=== PATIENT | male | born 2000 | race Asian ===

== ENCOUNTER 2019-03-18 22:44 | Emergency (ER) | payer SELFPAY ==
[~2019-03-18] VITALS: Ht 175.3 cm; Wt 81.8 kg
[2019-03-18 22:45] VITALS: TEMP 97.9
[2019-03-18 22:55] LABS: HEMATOCRIT 45.9 % (36.0-47.0); HEMOGLOBIN 15.9 g/dl (12.5-16.1); MEAN CELL VOLUME 87 fl (80.0-95.0); MEAN CORPUSCULAR HEMOGLOBIN 30 pg (26.0-32.0); MEAN CORPUSCULAR HGB CONC 35 g/dl (33.0-37.0); MEAN PLATELET VOLUME 9.5 fl (7.4-10.4); PLATELET COUNT 307 K/mm3 (130-400); REDCELL DISTRIBUTION WIDTH-CV 11.5 % (11.5-14.5)
[2019-03-18 23:05] LABS: ALBUMIN 5.1 gm/dL (3.5-5.0); BILIRUBIN,TOTAL 0.8 mg/dL (0.0-1.0); CALCIUM 9.6 mg/dL (8.4-10.2); CREATININE, serum 1.15 (0.66-1.25); POTASSIUM 3.4 mmol/L (3.4-5.0); TOTAL PROTEIN 8.4 gm/dL (6.4-8.2)
[2019-03-18 23:21] LABS: PROLACTIN 111.5 ng/mL (3.7-17.9)
[2019-03-18] MEDS ORDERED: KEPPRA 500MG500 MG PO (23:32)
[2019-03-18 23:39] LABS: EOSINOPHIL 2 % (0-4); LYMPHOCYTE 51 % (20.0-51.0); NEUTROPHILS 43 % (42.0-75.2); PLATELET ESTIMATE NORMAL (NORMAL)
[2019-03-19 00:35] LABS: COLLECTION METHOD CLEAN CATCH
[2019-03-19 00:40] LABS: MUCOUS Present /lpf; PH 5 (5-8); SQUAMOUS EPITHELIAL 0-2 /hpf; URINE APPEARANCE Clear; URINE BACTERIA None Seen /hpf; URINE BILIRUBIN Negative (NEGATIVE); URINE BLOOD Negative (NEGATIVE); URINE COLOR Yellow; URINE GLUCOSE Negative (NEGATIVE); URINE KETONE Negative (NEGATIVE); URINE LEUKOCYTE ESTERASE Negative (NEGATIVE); URINE NITRATE Negative (NEGATIVE); URINE PROTEIN(semi-quant) 1+ (NEGATIVE); URINE RBC 0-2 /hpf; URINE UROBILINOGEN Negative (NEGATIVE)
[2019-03-19 02:54] VITALS: BP 129/95; PULSE 98
== END 2019-03-19 02:54 | disposition home or self-care (01) ==
LOC: COL.ER 22:44
PROVIDERS: Emergency Medicine
DX: G40.909 Epilepsy, unspecified, not intractable, without status epilepticus (principal)
CPT/HCPCS: J1953; J7030

== ENCOUNTER 2020-08-09 02:34 | Inpatient (IN) | payer BC ==
[2020-08-09] VITALS (78 sets, daily range): BP systolic 114–145; BP diastolic 63–90; PULSE 87–125; TEMP 96.7–98.4; O2SAT 97–100
[~2020-08-09] VITALS: Ht 180.3 cm; Wt 94.5 kg
[~2020-08-09 02:34] MED LIST: KEPPRA 500MG500 MG PO
[2020-08-09 02:57] LABS: HEMATOCRIT 43.7 % (36.0-47.0); HEMOGLOBIN 14.8 g/dl (12.5-16.1); MEAN CELL VOLUME 87 fl (80.0-95.0); MEAN CORPUSCULAR HEMOGLOBIN 30 pg (26.0-32.0); MEAN CORPUSCULAR HGB CONC 34 g/dl (33.0-37.0); MEAN PLATELET VOLUME 9.7 fl (7.4-10.4); PLATELET COUNT 346 K/mm3 (130-400); REDCELL DISTRIBUTION WIDTH-CV 11.7 % (11.5-14.5)
[2020-08-09 03:05] LABS: ALANINE AMINOTRANSFERASE 41 U/L (4-49); ALBUMIN 4.9 gm/dL (3.5-5.0); ALKALINE PHOSPHATASE 70 U/L (50-136); ANION GAP 16 mmol/L (7-16); AST,SGOT 32 U/L (15-37); BLOOD UREA NITROGEN 16 mg/dL (9-20); CALCIUM 9.1 mg/dL (8.4-10.2); CARBON DIOXIDE 24 mmol/L (22-30); CHLORIDE 103 mmol/L (98-107); CREATININE, serum 1.05 (0.66-1.25); GLUCOSE 134 mg/dL (74-106); LIPASE 57 U/L (23-300); SODIUM 143 mmol/L (137-145); TOTAL PROTEIN 8.7 gm/dL (6.4-8.2)
[2020-08-09 03:08] LABS: MAGNESIUM 2.3 mg/dL (1.6-2.3)
[2020-08-09 03:16] LABS: BAND 8 % (0-10); EOSINOPHIL 1 % (0-4); LYMPHOCYTE 50 % (20.0-51.0); NEUTROPHILS 31 % (42.0-75.2); PLATELET ESTIMATE NORMAL (NORMAL)
[2020-08-09 03:20] LABS: POTASSIUM 2.6 mmol/L (3.4-5.0); TROPONIN-I < 0.012 ng/mL (0.000-0.035)
[2020-08-09 03:35] LABS: COLLECTION METHOD CLEAN CATCH
[2020-08-09 03:41] LABS: PH 6 (5-8); SQUAMOUS EPITHELIAL None Seen /hpf; URINE APPEARANCE Clear; URINE BACTERIA Rare /hpf; URINE BILIRUBIN Negative (NEGATIVE); URINE BLOOD Negative (NEGATIVE); URINE COLOR Straw; URINE GLUCOSE Negative (NEGATIVE); URINE KETONE Negative (NEGATIVE); URINE LEUKOCYTE ESTERASE Negative (NEGATIVE); URINE NITRATE Negative (NEGATIVE); URINE PROTEIN(semi-quant) Negative (NEGATIVE); URINE RBC 0-2 /hpf; URINE UROBILINOGEN Negative (NEGATIVE)
[2020-08-09 04:09] LABS: TRICYCLIC ANTIDEPRESS URINE NEGATIVE
[2020-08-09 05:14] LABS: INR 1.1 (0.8-3.0); PROTHROMBIN TIME 11.9 SECONDS (9.7-12.8)
[2020-08-09 05:23] LABS: ACETAMINOPHEN < 10 ug/mL (10-30); SALICYLATE < 1.0 mg/dL
[2020-08-09 05:39] LABS: PROLACTIN 88.9 ng/mL (3.7-17.9)
--- NOTE | 2020-08-09 08:27 | NUR ---
RECEIVED REPORT FROM JERROD LOCKWOOD.
[2020-08-09] MEDS ORDERED: KEPPRA 500MG500 MG PO (09:25)
--- NOTE | 2020-08-09 10:39 | NUR ---
DR. BRITO AT BEDSIDE. ORDERS RECEIVED.
--- NOTE | 2020-08-09 14:49 | NUR ---
SW met with patient to conduct intake assessment. Patient previously lived at home with his mother Kristi (P# [phone]) and father Leigh, but he currently lives in [place] in an apartment with friends Jen (P# [phone]) and Patricio (P# [phone]). Patient does not have DPOA and was not interested in paperwork at this time. Patient is independent with daily living activities and requires no DME. Patient does not have a local PCP but had an MD at home. He thinks he may have retired. Patient is interested in establishing with PCP here. Patient uses [facility] for medications. SW placed call to Jerrica Liu in finance to address patient's self-pay status. Patient plans to return home to apartment in [place] at discharge. Patient does not want his parents contacted if possible. Patient reports that they are on a vacation, and he does not want to worry them. Patient asks that we contact his friends. Social work will continue to follow.
--- NOTE | 2020-08-09 18:00 | NUR ---
Pt was appropriate, A/O x4 since arrival to the floor. Denies any pain. No seizures witnessed. Seizure precautions in place. Need for staff member in the room discussed with patient as he is a high fall risk d/t seizures. IVF infusing without issues. No PRN Ativan needed. Fall precautions in place.
--- NOTE | 2020-08-09 19:07 | NUR ---
Patient resting quietly, updated on plan of care, no c/o at this time, denies pain, seizure precautions in place, telemetry in use, will continue to monitor.
[2020-08-10 03:46] VITALS: BP 124/62; PULSE 84; TEMP 97.7
[2020-08-10 05:42] VITALS: BP 100/51; PULSE 83; TEMP 97.9
[2020-08-10 06:36] LABS: BASO % 0.3 % (0.0-2.0); EOS # 0.1 (0.0-0.7); EOS % 1.8 % (0-4.0); GRAN # 3.3 (1.4-6.5); GRAN % 50.3 % (42.2-75.2); HEMOGLOBIN 13.9 g/dl (12.5-16.1); LYMPH # 2.5 (1.2-3.4); LYMPH % 37.5 % (20.0-51.0); MEAN CELL VOLUME 90 fl (80.0-95.0); MEAN CORPUSCULAR HEMOGLOBIN 30 pg (26.0-32.0); MEAN CORPUSCULAR HGB CONC 33 g/dl (33.0-37.0); MEAN PLATELET VOLUME 9.6 fl (7.4-10.4); MONO # 0.7 (0.1-0.6); MONO % 9.9 % (1.7-9.3); PLATELET COUNT 266 K/mm3 (130-400); RED BLOOD COUNT 4.66 M/mm3 (4.20-5.60); REDCELL DISTRIBUTION WIDTH-CV 12.2 % (11.5-14.5)
[2020-08-10 06:51] LABS: CALCIUM 9.2 mg/dL (8.4-10.2); CREATININE, serum 1.04 (0.66-1.25); MAGNESIUM 2.1 mg/dL (1.6-2.3); POTASSIUM 4.1 mmol/L (3.4-5.0)
--- NOTE | 2020-08-10 08:30 | NUR ---
Pt assessment complete. Pt is A/O x4. His breathing even and unlabored on RA. Denies pain. No seizure like activity witnessed. Pt asking staff not to notify his parents that he is here and of his lab findings. Ensured patients privacy. Discussed discharge. Fall precautions in place
[2020-08-10 08:57] VITALS: BP 109/58; PULSE 91; TEMP 98.1
[2020-08-10] MEDS ORDERED: KEPPRA 500MG500 MG PO (09:08)
--- NOTE | 2020-08-10 12:47 | NUR ---
Discharge paperwork and instructions reviewed with patient. All questions answered at this time. IV's removed by student RN.
--- NOTE | 2020-08-10 13:15 | NUR ---
Pt walked out of facility at this time.
== END 2020-08-10 13:20 | disposition home or self-care (01) | DRG 101 ==
LOC: COL.ER 02:34 → ICU 05:09 → MEDICAL 12:50
PROVIDERS: Emergency Medicine; Nurse Practitioner Family; ADMIT Internal Medicine
DX: G40.909 Epilepsy, unspecified, not intractable, without status epilepticus (principal); E87.6 Hypokalemia; I10 Essential (primary) hypertension; F19.10 Other psychoactive substance abuse, uncomplicated; R01.1 Cardiac murmur, unspecified; F10.10 Alcohol abuse, uncomplicated; Z91.14 Patient's other noncompliance with medication regimen
CPT/HCPCS: 99223-AI; 99239; J0360; J1650; J1953; J2405; J3411; J3480; J7030

== ENCOUNTER 2021-10-04 14:44 | Emergency (ER) | payer BC ==
[~2021-10-04] VITALS: Ht 177.8 cm; Wt 95.5 kg
[2021-10-04 14:58] VITALS: BP 99/65; TEMP 97.7
[2021-10-04 15:56] VITALS: PULSE 92
[2021-10-04] MEDS ORDERED: CRUTCHES MC (16:35)
== END 2021-10-04 15:56 | disposition home or self-care (01) ==
LOC: COL.ER 14:44
DX: S93.401A Sprain of unspecified ligament of right ankle, initial encounter (principal); X50.1XXA Overexertion from prolonged static or awkward postures, initial encounter